=== PATIENT | male | born 1990 | race African-American/Black ===

== ENCOUNTER → 2020-11-27 | Outpatient (CLI) | payer OTHER ==
[~2020-11-27] MED LIST: OMNIPAQUE 350 MG/ML, 150 ML BOTTLE ONE
== END | disposition home or self-care (01) ==
LOC: CFH 14:13
DX: R16.0 Hepatomegaly, not elsewhere classified (principal); R31.21 Asymptomatic microscopic hematuria
CPT/HCPCS: 74178; Q9967

== ENCOUNTER → 2020-12-18 | Outpatient (CLI) | payer OTHER ==
[~2020-12-18] MED LIST changes: +GADOTERATE 10 MMOL/20 ML VIAL ONE; -OMNIPAQUE 350 MG/ML, 150 ML BOTTLE ONE
== END | disposition home or self-care (01) ==
LOC: CFH 07:15
PROVIDERS: ATTEND Physician Assistant
DX: K76.89 Other specified diseases of liver (principal); R93.5 Abnormal findings on diagnostic imaging of other abdominal regions, including retroperitoneum
CPT/HCPCS: 74183; A9575